=== PATIENT | female | born 1970 | race African-American/Black ===

== ENCOUNTER 2017-04-19 17:48 | Emergency (ER) | payer SELFPAY ==
[2017-04-19] MEDS ORDERED: Proparacaine 0.5% Opth 15 ML BOT ONE (18:20)
[2017-04-19] MEDS ORDERED: Fluorescein Opthalmic Strip ONE (18:20)
== END 2017-04-19 18:38 | disposition home or self-care (01) ==
LOC: ERS 17:48
DX: H10.9 Unspecified conjunctivitis (principal); Z71.6 Tobacco abuse counseling; F17.210 Nicotine dependence, cigarettes, uncomplicated
CPT/HCPCS: 99406

== ENCOUNTER 2018-12-07 06:53 | Emergency (ER) | payer SELFPAY ==
[2018-12-07] MEDS ORDERED: Ketorolac Tromethamine 30 MG/ML VIAL ONE (07:12)
--- NOTE | 2018-12-07 07:38 | RAD ---
EXAM: 3 views of the right shoulder HISTORY: Shoulder pain COMPARISON: None FINDINGS: There is no evidence of acute fracture or dislocation. No degenerative changes are present. No soft tissue swelling is seen. The visualized thorax is unremarkable. IMPRESSION: No evidence of acute osseous abnormality.
== END 2018-12-07 07:45 | disposition home or self-care (01) ==
LOC: ERS 06:53
DX: M25.511 Pain in right shoulder (principal); F17.210 Nicotine dependence, cigarettes, uncomplicated
CPT/HCPCS: 93005; 96372; J1885

== ENCOUNTER 2018-12-10 06:51 | Emergency (ER) | payer SELFPAY ==
[2018-12-10] MEDS ORDERED: Ketorolac Tromethamine 30 MG/ML VIAL ONE (07:59)
[2018-12-10] MEDS ORDERED: Dexamethasone 10 MG/ML VIAL ONE (07:59)
[2018-12-10] MEDS ORDERED: Acetaminophen 500 MG TAB ONE (07:59)
== END 2018-12-10 09:04 | disposition home or self-care (01) ==
LOC: ERS 06:51
DX: S43.401A Unspecified sprain of right shoulder joint, initial encounter (principal); M75.91 Shoulder lesion, unspecified, right shoulder; F17.210 Nicotine dependence, cigarettes, uncomplicated; Z79.899 Other long term (current) drug therapy; W19.XXXA Unspecified fall, initial encounter
CPT/HCPCS: 93005; 96372; J1100; J1885